=== PATIENT | female | born 2000 | race Caucasian/White ===

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

== ENCOUNTER 2021-02-04 23:56 | Inpatient (IN) ==
[2021-02-05] MEDS ORDERED: 0.9 % Sodium Chloride 1,000 ML IVC ONE (00:44)
[2021-02-05 01:12] LABS: Basophils % 0.6 %; Eosinophils % 0.2 %; Hematocrit 34.7 % (35.3-44.9); Hemoglobin 11.4 g/dL (11.5-15.4); Immature Granulocytes % 0.4 % (0-4); Lymphocytes # 1.8 K/mcL (0.6-4.6); Lymphocytes % 33.4 %; Mean Corpuscular HGB Conc 32.9 g/dL (31.6-35.5); Mean Corpuscular Hemoglobin 29.3 pg (28.0-33.3); Mean Corpuscular Volume 89.2 fL (83.0-100.0); Mean Platelet Volume 10.5 fL (9.4-12.4); Monocytes # 0.3 K/mcL (0.0-1.3); Monocytes % 5.7 %; Neutrophils # 3.2 K/mcL (1.6-8.9); Platelet Count 164 K/mcL (140-400); Red Blood Count 3.89 M/mcL (3.82-4.97); Red Cell Distribution Width 11.8 % (11.5-14.5); Segmented Neutrophils % 59.7 %; White Blood Count 5.3 K/mcL (4.3-11.1)
[2021-02-05 01:14] LABS: Bilirubin,Urine Negative (Negative); Blood,Urine Negative (Negative); Clarity,Urine Clear (Clear); Color,Urine Colorless (Yellow); Glucose,Urine (UA) Normal (Normal); Ketones,Urine Negative (Negative); Leukocyte Esterase,Urine Negative (Negative); Nitrite,Urine Negative (Negative); PH,Urine 6.5 pH Units (5.0-8.0); Protein,Urine Negative (Neg-Trace); Specific Gravity,Urine < 1.005 (1.010-1.025); Urobilinogen,Urine Normal (Normal)
[2021-02-05 01:25] LABS: Amphetamine Screen,Urine Negative ng/mL (Cutoff=1000); Barbiturate Screen,Urine Negative ng/mL (Cutoff=200); Benzodiazepines Screen,Urine Negative ng/mL (Cutoff=200); Cannabinoid Screen,Urine Negative ng/mL (Cutoff = 50); Cocaine Screen,Urine Negative ng/mL (Cutoff= 300); Opiate Screen,Urine Negative ng/mL (Cutoff=300); Phencyclidine Screen,Urine Negative ng/mL (Cutoff=25)
[2021-02-05 01:32] LABS: Acetaminophen < 10 mcg/mL (10-20); BUN/Creatinine Ratio 12 (6-26); Blood Urea Nitrogen 10 mg/dL (6-20); Calcium 8.8 mg/dL (8.6-10.3); Carbon Dioxide 21 mEq/L (23-29); Chloride 104 mEq/L (98-107); Chol/HDL Ratio 2.2 (0-4.9); Cholesterol 143 mg/dL (< 200); Ethanol 88 mg/dL (Less than 10); Glucose 98 mg/dL (70-105); HDL Cholesterol 64 mg/dL (40-59); LDL Cholesterol,Calculated 70 mg/dL (< 100); Osmolality,Calculated 281 (280-300); Potassium 3.2 mEq/L (3.5-5.1); Salicylate < 2.5 mg/dL (15.0-30.0); Sodium 136 mEq/L (136-145); Triglycerides 43 mg/dL (< 150); eGFR For African Americans > 60 (> 60); eGFR For Non-African Americans > 60 (> 60)
[2021-02-05 02:06] LABS: Estimated Average Glucose 91 mg/dl; Hemoglobin A1C 4.8 %
[2021-02-05 12:57] LABS: Adenovirus Not Detected (Not Detect); Bordetella Pertussis Not Detected (Not Detect); Chlamydophila pneumoniae Not Detected (Not Detect); Coronavirus 229E Not Detected (Not Detect); Coronavirus HKU1 Not Detected (Not Detect); Coronavirus NL63 Not Detected (Not Detect); Coronavirus OC43 Not Detected (Not Detect); Human Metapneumovirus Not Detected (Not Detect); Human Rhinovirus/Enterovirus Not Detected (Not Detect); Influenza A Subtype 2009 H1 Not Detected (Not Detect); Influenza B Not Detected (Not Detect); Mycoplasma pneumoniae Not Detected (Not Detect); Parainfluenza Virus 1 Not Detected (Not Detect); Parainfluenza Virus 2 Not Detected (Not Detect); Parainfluenza Virus 3 Not Detected (Not Detect); Parainfluenza Virus 4 Not Detected (Not Detect); Respiratory Syncytial Virus Not Detected (Not Detect); SARS-CoV-2 Not Detected (Not Detect)
[2021-02-05] MEDS ORDERED: Haloperidol Lactate 5 MG/ML VIAL IM PRN (15:24)
[2021-02-05] MEDS ORDERED: Acetaminophen 325 MG TABLET PO PRN (15:24)
[2021-02-05] MEDS ORDERED: haloperidoL 5 MG TABLET PO PRN (15:24)
[2021-02-05] MEDS ORDERED: hydrOXYzine pamoate 25 MG CAPSULE PO PRN (15:24)
[2021-02-05] MEDS ORDERED: MOM Conc 10 ML UD.LIQ PO PRN (15:24)
[2021-02-05] MEDS ORDERED: *HR* LORazepam 1 MG TABLET PO PRN (15:24)
[2021-02-05] MEDS ORDERED: traZODone 50 MG TABLET PO PRN (15:24)
[2021-02-05] MEDS ORDERED: *HR* LORazepam 2 MG/ML VIAL IM PRN (15:24)
[2021-02-05] MEDS ORDERED: Mag Hydrox/Al Hydrox/Simeth 30 ML UDC PO PRN (15:24)
[2021-02-07 09:12] VITALS: BP 109/73
== END 2021-02-07 15:05 | disposition home or self-care (01) | DRG 885 ==
LOC: EMEROOARM 23:56 → 1ANU 02-05 13:18
PROVIDERS: ADMIT Psychiatry & Neurology Forensic Psychiatry; ATTEND Psychiatry & Neurology Forensic Psychiatry

== ENCOUNTER 2021-08-04 08:56 | Inpatient (IN) ==
[2021-08-04 09:38] LABS: Basophils % 0.4 %; Eosinophils % 0.1 %; Hematocrit 40.7 % (35.3-44.9); Hemoglobin 13.2 g/dL (11.5-15.4); Immature Granulocytes % 0.1 % (0-4); Lymphocytes # 2.1 K/mcL (0.6-4.6); Lymphocytes % 30.2 %; Mean Corpuscular HGB Conc 32.4 g/dL (31.6-35.5); Mean Corpuscular Volume 89.5 fL (83.0-100.0); Mean Platelet Volume 10.4 fL (9.4-12.4); Monocytes # 0.4 K/mcL (0.0-1.3); Neutrophils # 4.3 K/mcL (1.6-8.9); Platelet Count 172 K/mcL (140-400); Red Blood Count 4.55 M/mcL (3.82-4.97); Red Cell Distribution Width 11.7 % (11.5-14.5); Segmented Neutrophils % 63.2 %; White Blood Count 6.9 K/mcL (4.3-11.1)
[2021-08-04] MEDS ORDERED: 0.9 % Sodium Chloride 1,000 ML IVC ONE (09:47)
[2021-08-04 10:00] LABS: Bilirubin,Urine Negative (Negative); Blood,Urine Negative (Negative); Clarity,Urine Clear (Clear); Color,Urine Light-Yellow (Yellow); Glucose,Urine (UA) Normal (Normal); Ketones,Urine Negative (Negative); Leukocyte Esterase,Urine Negative (Negative); Nitrite,Urine Negative (Negative); PH,Urine 6.5 pH Units (5.0-8.0); Protein,Urine Negative (Neg-Trace); Specific Gravity,Urine 1.015 (1.010-1.025); Urobilinogen,Urine Normal (Normal)
[2021-08-04 10:01] LABS: Acetaminophen < 10 mcg/mL (10-20); Alanine Aminotransferase 11 Units/L (7-52); Albumin 4.7 g/dL (3.5-5.7); Albumin/Globulin Ratio 2.1 (1.1-2.2); Alkaline Phosphatase 77 Units/L (34-104); Aspartate Amino Transferase 12 Units/L (13-39); BUN/Creatinine Ratio 17 (6-26); Bilirubin,Direct 0.2 mg/dL (0.0-0.2); Bilirubin,Indirect 0.8 mg/dL (0.0-1.0); Blood Urea Nitrogen 16 mg/dL (6-20); Calcium 9.5 mg/dL (8.6-10.3); Carbon Dioxide 26 mEq/L (23-29); Chloride 105 mEq/L (98-107); Chol/HDL Ratio 2.2 (0-4.9); Cholesterol 172 mg/dL (< 200); Ethanol < 10 mg/dL (Less than 10); Globulin 2.2 g/dL (2.4-3.5); Glucose 95 mg/dL (70-105); HDL Cholesterol 78 mg/dL (40-59); LDL Cholesterol,Calculated 80 mg/dL (< 100); Osmolality,Calculated 289 (280-300); Potassium 3.6 mEq/L (3.5-5.1); Salicylate < 2.5 mg/dL (15.0-30.0); Sodium 139 mEq/L (136-145); Total Protein 6.9 g/dL (6.4-8.9); Triglycerides 70 mg/dL (< 150); eGFR For African Americans > 60 (> 60); eGFR For Non-African Americans > 60 (> 60)
[2021-08-04 10:31] LABS: Estimated Average Glucose 94 mg/dl; Hemoglobin A1C 4.9 %
[2021-08-04 11:01] LABS: Amphetamine Screen,Urine Negative ng/mL (Cutoff=1000); Barbiturate Screen,Urine Negative ng/mL (Cutoff=200); Benzodiazepines Screen,Urine Negative ng/mL (Cutoff=200); Cannabinoid Screen,Urine Negative ng/mL (Cutoff = 50); Cocaine Screen,Urine Negative ng/mL (Cutoff= 300); Opiate Screen,Urine Negative ng/mL (Cutoff=300); Phencyclidine Screen,Urine Negative ng/mL (Cutoff=25)
[2021-08-04 14:59] LABS: Influenza A PCR Negative (Negative); Influenza B PCR Negative (Negative); Resp. Syncytial Virus PCR Negative (Negative); SARS-CoV-2 by PCR (In House) Negative (Negative)
[2021-08-04] MEDS ORDERED: QUEtiapine Fumarate 25 MG TABLET PO PRN (15:24)
[2021-08-04] MEDS ORDERED: *HR* LORazepam 2 MG/ML VIAL IM PRN (15:24)
[2021-08-04] MEDS ORDERED: haloperidoL 5 MG TABLET PO PRN (15:24)
[2021-08-04] MEDS ORDERED: Mag Hydrox/Al Hydrox/Simeth 30 ML UDC PO PRN (15:24)
[2021-08-04] MEDS ORDERED: *HR* LORazepam 1 MG TABLET PO PRN (15:24)
[2021-08-04] MEDS ORDERED: Acetaminophen 325 MG TABLET PO PRN (15:24)
[2021-08-04] MEDS ORDERED: hydrOXYzine pamoate 25 MG CAPSULE PO PRN (15:24)
[2021-08-04] MEDS ORDERED: Haloperidol Lactate 5 MG/ML VIAL IM PRN (15:24)
[2021-08-06] MEDS ORDERED: QUEtiapine Fumarate 25 MG TABLET PO PRN (10:39)
[2021-08-06 21:03] VITALS: PULSE 88
[2021-08-07 08:52] VITALS: BP 124/85; TEMP 98.4; O2SAT 100
== END 2021-08-07 14:25 | disposition home or self-care (01) | DRG 885 ==
LOC: EMEROOARM 08:56 → 1ANU 15:20
PROVIDERS: ADMIT Psychiatry & Neurology Psychiatry; ATTEND Psychiatry & Neurology Psychiatry

== ENCOUNTER → 2022-03-15 23:40 | Observation (INO) ==
[2022-03-15 23:09] LABS: Bilirubin,Urine Negative (Negative); Blood,Urine Negative (Negative); Clarity,Urine Clear (Clear); Color,Urine Colorless (Yellow); Glucose,Urine (UA) Normal (Normal); Ketones,Urine Negative (Negative); Leukocyte Esterase,Urine Small (Negative); Nitrite,Urine Negative (Negative); PH,Urine 6.5 pH Units (5.0-8.0); Protein,Urine Negative (Neg-Trace); RBC,Urine 0-3 per hpf (0-3); Specific Gravity,Urine 1.011 (1.010-1.025); Squamous Epithelial Cell,Urine Few per hpf (None-Few); Urobilinogen,Urine Normal (Normal)
[2022-03-16 00:27] LABS: Candida DNA DETECTED (Not Detect); Gardnerella DNA Not Detected (Not Detect); Trichomonas DNA Not Detected (Not Detect)
== END | disposition home or self-care (01) ==
LOC: 1NENULAB
PROVIDERS: ADMIT Registered Nurse; ATTEND Registered Nurse

== ENCOUNTER 2022-05-02 11:46 | Observation (INO) ==
[2022-05-02 13:25] LABS: Bilirubin,Urine Negative (Negative); Blood,Urine Negative (Negative); Clarity,Urine Clear (Clear); Color,Urine Colorless (Yellow); Glucose,Urine (UA) Normal (Normal); Ketones,Urine Negative (Negative); Leukocyte Esterase,Urine Negative (Negative); Nitrite,Urine Negative (Negative); PH,Urine 7.5 pH Units (5.0-8.0); Protein,Urine Negative (Neg-Trace); Specific Gravity,Urine 1.008 (1.010-1.025); Urobilinogen,Urine Normal (Normal)
[2022-05-02] MEDS ORDERED: Ringers Solution, Lactated 1,000 ML ONE (13:35)
[2022-05-02] MEDS ORDERED: Ringers Solution, Lactated 1,000 ML IVC SCH (13:45)
[2022-05-02 14:33] LABS: Basophils % 0.3 %; Eosinophils % 0.3 %; Hematocrit 32.6 % (35.3-44.9); Hemoglobin 10.1 g/dL (11.5-15.4); Immature Granulocytes % 0.7 % (0-4); Lymphocytes # 1.5 K/mcL (0.6-4.6); Lymphocytes % 25.2 %; Mean Corpuscular Hemoglobin 29.1 pg (28.0-33.3); Mean Corpuscular Volume 93.9 fL (83.0-100.0); Mean Platelet Volume 10.3 fL (9.4-12.4); Monocytes # 0.4 K/mcL (0.0-1.3); Monocytes % 6.6 %; Neutrophils # 3.9 K/mcL (1.6-8.9); Platelet Count 156 K/mcL (140-400); Red Blood Count 3.47 M/mcL (3.82-4.97); Segmented Neutrophils % 66.9 %; White Blood Count 5.8 K/mcL (4.3-11.1)
[2022-05-02 14:41] LABS: Amphetamine Screen,Urine Negative ng/mL (Cutoff=1000); Barbiturate Screen,Urine Negative ng/mL (Cutoff=200); Benzodiazepines Screen,Urine Negative ng/mL (Cutoff=200); Cannabinoid Screen,Urine Negative ng/mL (Cutoff = 50); Cocaine Screen,Urine Negative ng/mL (Cutoff= 300); Creatinine,Urine 28 mg/dL; Opiate Screen,Urine Negative ng/mL (Cutoff=300); Phencyclidine Screen,Urine Negative ng/mL (Cutoff=25); Protein/Creatinine Ratio,Urine 0.14 mg/mg (0.00-0.20)
[2022-05-02 14:53] LABS: Alanine Aminotransferase 12 Units/L (7-52); Albumin 3.6 g/dL (3.5-5.7); Albumin/Globulin Ratio 1.5 (1.1-2.2); Alkaline Phosphatase 57 Units/L (34-104); Aspartate Amino Transferase 16 Units/L (13-39); BUN/Creatinine Ratio 15 (6-26); Bilirubin,Total 0.5 mg/dL (0.3-1.0); Blood Urea Nitrogen 8 mg/dL (6-20); Calcium 8.9 mg/dL (8.6-10.3); Carbon Dioxide 20 mEq/L (23-29); Chloride 108 mEq/L (98-107); Globulin 2.4 g/dL (2.4-3.5); Glucose 86 mg/dL (70-105); Lactate Dehydrogenase 167 Units/L (140-271); Osmolality,Calculated 278 (280-300); Potassium 4.1 mEq/L (3.5-5.1); Sodium 135 mEq/L (136-145)
== END 2022-05-02 14:34 | disposition home or self-care (01) ==
LOC: 1NENULAB
PROVIDERS: ADMIT Advanced Practice Midwife; ATTEND Advanced Practice Midwife

== ENCOUNTER → 2022-06-16 13:33 | Observation (INO) ==
[2022-06-16 12:21] LABS: Bacteria,Urine Few per hpf (None-Few); Bilirubin,Urine Negative (Negative); Blood,Urine Negative (Negative); Clarity,Urine Clear (Clear); Color,Urine Light-Yellow (Yellow); Glucose,Urine (UA) 300 mg/dL (Normal); Ketones,Urine Negative (Negative); Leukocyte Esterase,Urine Negative (Negative); Mucus,Urine Few per lpf (None-Few); Nitrite,Urine Negative (Negative); PH,Urine 6.5 pH Units (5.0-8.0); Protein,Urine Negative (Neg-Trace); RBC,Urine 0-3 per hpf (0-3); Squamous Epithelial Cell,Urine Few per hpf (None-Few); Urobilinogen,Urine Normal (Normal)
[2022-06-16 12:23] LABS: Basophils % 0.1 %; Eosinophils % 0.3 %; Hematocrit 33.2 % (35.3-44.9); Hemoglobin 10.8 g/dL (11.5-15.4); Immature Granulocytes % 0.3 % (0-4); Lymphocytes # 1.5 K/mcL (0.6-4.6); Lymphocytes % 21.5 %; Mean Corpuscular HGB Conc 32.5 g/dL (31.6-35.5); Mean Corpuscular Hemoglobin 29.7 pg (28.0-33.3); Mean Corpuscular Volume 91.2 fL (83.0-100.0); Mean Platelet Volume 10.8 fL (9.4-12.4); Monocytes # 0.4 K/mcL (0.0-1.3); Monocytes % 5.5 %; Neutrophils # 5.1 K/mcL (1.6-8.9); Platelet Count 146 K/mcL (140-400); Red Blood Count 3.64 M/mcL (3.82-4.97); Red Cell Distribution Width 15.4 % (11.5-14.5); Segmented Neutrophils % 72.3 %; White Blood Count 7.1 K/mcL (4.3-11.1)
[2022-06-16 12:24] LABS: Protein/Creatinine Ratio,Urine 0.13 mg/mg (0.00-0.20)
[2022-06-16 12:46] LABS: Alanine Aminotransferase 10 Units/L (7-52); BUN/Creatinine Ratio 20 (6-26); Blood Urea Nitrogen 9 mg/dL (6-20); Lactate Dehydrogenase 102 Units/L (140-271); Uric Acid 3.5 mg/dL (2.3-7.6)
[2022-06-16 13:35] LABS: Aspartate Amino Transferase 11 Units/L (13-39)
== END | disposition home or self-care (01) ==
LOC: 1NENULAB
PROVIDERS: ADMIT Registered Nurse; ATTEND Registered Nurse